=== PATIENT | female | born 1950 | race Caucasian/White ===

== ENCOUNTER 2020-09-07 20:36 | Emergency (ER) | payer OTHER ==
[~2020-09-07] VITALS: Ht 170.2 cm; Wt 56.7 kg
--- NOTE | 2020-09-07 21:05 | NUR ---
PRESENTED TO THE ER FOR C/O LFA PAIN S/P TRIP AND FALL. DENIED HITTING HER HEAD. - MAUDE.
--- NOTE | 2020-09-07 21:26 | NUR ---
RAD AT BED SIDE
[2020-09-07] MEDS ORDERED: ACET-2605 PO (21:44)
--- NOTE | 2020-09-07 22:04 | NUR ---
PT IS MEDICALLY STBLE FOR D.C, Patient discharged to home in stable condition. Written and verbal after care instructions given. Patient verbalizes understanding of instruction.
[2020-09-07 22:08] VITALS: BP 147/93
== END 2020-09-07 22:08 | disposition home or self-care (01) ==
LOC: ER 20:36
DX: M25.532 Pain in left wrist (principal); Z88.0 Allergy status to penicillin; Z88.2 Allergy status to sulfonamides; Z88.6 Allergy status to analgesic agent; W01.0XXA Fall on same level from slipping, tripping and stumbling without subsequent striking against object, initial encounter; Y93.89 Activity, other specified; Y92.89 Other specified places as the place of occurrence of the external cause; Y99.8 Other external cause status
CPT/HCPCS: 73090-TC; 73110